=== PATIENT | female | born 1975 | race Caucasian/White ===

== ENCOUNTER 2021-07-18 02:17 | Inpatient (IN) | payer BC ==
[~2021-07-18] VITALS: Ht 167.6 cm; Wt 71.0 kg
[2021-07-18 03:16] LABS: HEMOGLOBIN 10.9 g/dl (12.5-16.0); MEAN CELL VOLUME 91 fl (80.0-100.0); MEAN CORPUSCULAR HEMOGLOBIN 33 pg (27.0-31.0); MEAN CORPUSCULAR HGB CONC 36 g/dl (33.0-37.0); MEAN PLATELET VOLUME 9.1 fl (7.4-10.4); PLATELET COUNT 209 K/mm3 (130-400); RED BLOOD COUNT 3.32 M/mm3 (4.10-5.30); REDCELL DISTRIBUTION WIDTH-CV 12.1 % (11.5-14.5)
[2021-07-18 03:21] LABS: HEMATOCRIT 30.1 % (37.0-47.0)
[2021-07-18 03:30] LABS: ALANINE AMINOTRANSFERASE 20 U/L (0-55); ALBUMIN 2.5 gm/dL (3.5-5.0); ALKALINE PHOSPHATASE 84 U/L (40-150); ANION GAP 12 mmol/L (7-16); AST,SGOT 27 U/L (5-34); BILIRUBIN,TOTAL 1.1 mg/dL (0.2-1.2); BLOOD UREA NITROGEN 2 mg/dL (7-19); CALCIUM 7.7 mg/dL (8.4-10.2); CARBON DIOXIDE 16 mmol/L (22-29); CHLORIDE 99 mmol/L (98-107); CREATININE, serum 0.54 mg/dL (0.57-1.11); GLUCOSE 109 mg/dL (70-99); SODIUM 127 mmol/L (136-145); TOTAL PROTEIN 6.1 gm/dL (6.2-8.1)
[2021-07-18 03:32] LABS: POTASSIUM 2.9 mmol/L (3.5-4.5)
[2021-07-18 03:40] LABS: TROPONIN-I < 0.010 ng/mL (0.00-0.033)
[2021-07-18 03:44] LABS: BAND 5 % (0-10); LYMPHOCYTE 13 % (20.0-51.0); NEUTROPHILS 72 % (42.0-75.2)
[2021-07-18 03:45] LABS: PLATELET ESTIMATE NORMAL (NORMAL)
[2021-07-18] MEDS ORDERED: ASPIRIN 81M81 MG/TA2 PO (06:37)
[2021-07-18] MEDS ORDERED: PRENATAL TABLET PO (06:38)
[2021-07-18 12:00] VITALS: BP 133/63; PULSE 131; TEMP 100
[2021-07-18 15:58] LABS: HEMATOCRIT 28.9 % (37.0-47.0); HEMOGLOBIN 10.1 g/dl (12.5-16.0); MEAN CELL VOLUME 94 fl (80.0-100.0); MEAN CORPUSCULAR HEMOGLOBIN 33 pg (27.0-31.0); MEAN CORPUSCULAR HGB CONC 35 g/dl (33.0-37.0); MEAN PLATELET VOLUME 8.9 fl (7.4-10.4); PLATELET COUNT 212 K/mm3 (130-400); RED BLOOD COUNT 3.07 M/mm3 (4.10-5.30); REDCELL DISTRIBUTION WIDTH-CV 12.4 % (11.5-14.5)
[2021-07-18 16:00] VITALS: BP 110/45; PULSE 130; TEMP 99.5
--- NOTE | 2021-07-18 16:00 | NUR ---
This RN at bedside to doppler. FHR 160s-170s. No audible increases or decreases. Report to primary RN.
[2021-07-18 16:15] LABS: ANION GAP 10 mmol/L (7-16); C-REACTIVE PROTEIN 8.96 mg/dL (0.00-0.50); CALCIUM 7.4 mg/dL (8.4-10.2); CARBON DIOXIDE 17 mmol/L (22-29); CHLORIDE 106 mmol/L (98-107); CREATININE, serum 0.57 mg/dL (0.57-1.11); GLUCOSE 126 mg/dL (70-99); MAGNESIUM 1.7 mg/dL (1.6-2.6); POTASSIUM 3.4 mmol/L (3.5-4.5); SODIUM 133 mmol/L (136-145)
[2021-07-18 16:17] LABS: BLOOD UREA NITROGEN < 2 mg/dL (7-19)
--- NOTE | 2021-07-18 18:00 | NUR ---
Patient admitted to room 302 from ED. Upon initial assessment, patient was requring 2L of O2 via nasal cannula. As the shift progressed, patient's anxiety intensified and patient's O2 had to be titrated up to 9L via Oxy mask. JI Oshea and respiratory notified. Lung bases diminished. Normal S1 and S2 sounds present. Pedal and radial pulses +3 bilaterally. Patient is tachy in the 130's. Bowel sounds present in all four quadrants. heart sounds scheduled every four hours. OB aware. No skin issues noted. Patient is experiencing diarrhea. Tolerating PO with no issues. Patient denies any further needs at this time. Call light in reach. Report given to BERENICE Nixon.
[2021-07-18 19:50] VITALS: BP 113/42; PULSE 123; TEMP 98.2
--- NOTE | 2021-07-18 22:21 | NUR ---
FHT 150-160 AND REACTIVE, NO AUDIABLE DECELS. PT IS VERY ANIXOUS [place] WHEN GETTING UP COUGHS AND HYPERVENTALATES. PRN ATIVAN GIVEN. PUREWICK IN FOR VOIDING. ASSESSMENT COMPLETE. POC DISCUSSED. CALL LIGHT WI REACH.
[2021-07-18 22:39] VITALS: BP 108/46; PULSE 116; TEMP 98.5
[2021-07-19] VITALS (295 sets, daily range): BP systolic 101–111; BP diastolic 46–73; PULSE 89–115; TEMP 96.9–98.2; O2SAT 85–96
[2021-07-19 00:43] LABS: ARTERIAL BLD GAS O2 SATURATION 93.6 % (92-100); ARTERIAL BLD GAS TCO2 CT 20.5; ARTERIAL BLOOD GAS BASE EXCESS -3.3 (-2-2); ARTERIAL BLOOD GAS HCO3 19.6 meq/L (22-26); ARTERIAL BLOOD GAS PCO2 28.6 mmHg (35-45); ARTERIAL BLOOD GAS PO2 65.9 mmHg (80-100); ARTERIAL BLOOD GAS pH 7.45 (7.35-7.45)
--- NOTE | 2021-07-19 00:55 | NUR ---
fht 150-160 and reactive, no decels. ativan is helping w aniexty levels.
--- NOTE | 2021-07-19 05:39 | NUR ---
fht 160-170 and reactive, no audiable decels. Pt back to high flow did not toelrate airvo very well. mininal sleep overnight. cough up some phlem this am.
[2021-07-19 07:07] LABS: HEMOGLOBIN 10.8 g/dl (12.5-16.0); MEAN CELL VOLUME 94 fl (80.0-100.0); MEAN CORPUSCULAR HEMOGLOBIN 33 pg (27.0-31.0); MEAN CORPUSCULAR HGB CONC 35 g/dl (33.0-37.0); MEAN PLATELET VOLUME 9.2 fl (7.4-10.4); PLATELET COUNT 248 K/mm3 (130-400); RED BLOOD COUNT 3.32 M/mm3 (4.10-5.30); REDCELL DISTRIBUTION WIDTH-CV 12.4 % (11.5-14.5)
[2021-07-19 07:09] LABS: HEMATOCRIT 31.2 % (37.0-47.0)
[2021-07-19 07:21] LABS: CREATININE, serum 0.59 mg/dL (0.57-1.11); MAGNESIUM 1.8 mg/dL (1.6-2.6)
--- NOTE | 2021-07-19 10:11 | NUR ---
PT RESTING IN BED. MORNING MEDICATIONS GIVEN. SHIFT ASSESSMENT COMPLETED. PT ANXIOUS, ESPECIALLY AFTER SPEAKING TO DOCTORS THIS MORNING AND LEARNING ABOUT POSSIBLE TRANSFER. DENIES ANY PAIN. SOB WITH ANY ACTIVITY. PT ON 14L OXYMASK. INTERESTED IN TRYING A POPSICKLE BUT HAS NO APPETITE FOR ANYTHING ELSE. WILL CONTINUE TO MONITOR.
--- NOTE | 2021-07-19 14:51 | NUR ---
PT TRASFERRED TO ICU AT THIS TIME, ACCOMPANIED BY THIS RN.
[2021-07-19 15:51] LABS: ARTERIAL BLD GAS O2 SATURATION 94.7 % (92-100); ARTERIAL BLD GAS TCO2 CT 20.6; ARTERIAL BLOOD GAS BASE EXCESS -3.2 (-2-2); ARTERIAL BLOOD GAS HCO3 19.7 meq/L (22-26); ARTERIAL BLOOD GAS PCO2 28.7 mmHg (35-45); ARTERIAL BLOOD GAS PO2 71.2 mmHg (80-100); ARTERIAL BLOOD GAS pH 7.46 (7.35-7.45)
--- NOTE | 2021-07-19 15:59 | NUR ---
Patient to be transferred down to ICU. Patient may need transfer to facility with NICU as she is 22 weeks .
--- NOTE | 2021-07-19 20:13 | NUR ---
PATIENT IS VERY ANXIOUS AND NEEDS A LOT OF REASSURANCE IN REGARDS TO CARE; STATES THAT SHE FEELS LIKE SHE'S GOING TO HAVE A PANIC ATTACK WHEN THINGS GO WRONG; FOR INSTANCE, HER PUREWICK WASN'T HOOKED UP PROPERLY AND NOW SHE'S AFRAID TO URINATE BECAUSE "IT MAY NOT WORK AND IF IT DOESN'T I'LL GET ANXIOUS AND HAVE A PANIC ATTACK". NEEDS LOTS OF REASSURANCE THAT THINGS WILL WORK AND SHE WILL BE OK.
--- NOTE | 2021-07-19 22:30 | NUR ---
Patient sitting up in bed. Very anxious, becomes tearful very quickly when RN comes into room. Has several questions about events of the day, especially concerned about "transferring to another hospital when my baby is 24 weeks and having to do a ." This RN spoke with patient at length and explained events of today and why she is in the ICU instead of being on the medical floor. Patient appears much calmer after talking and less tearful. Encouragement given. Asks many relivent questions; answered as able. Encouraged patient to speak with Dr. White tomorrow if continues to have questions or concerns.
[2021-07-20] VITALS (659 sets, daily range): BP systolic 92–146; BP diastolic 55–73; PULSE 88–111; TEMP 97.1–98.4; O2SAT 87–99
--- NOTE | 2021-07-20 04:40 | NUR ---
Awakens easily for FHTs and AM lab draw. States "I slept really good for a couple hours and feel a lot better." Encouragement given. Still becomes tachypnic with conversation but is able to calm self and recovers quickly. Denies needs at this time, request to shut lights back off so she could nap longer.
[2021-07-20 05:47] LABS: HEMOGLOBIN 10.5 g/dl (12.5-16.0); MEAN CELL VOLUME 96 fl (80.0-100.0); MEAN CORPUSCULAR HEMOGLOBIN 33 pg (27.0-31.0); MEAN CORPUSCULAR HGB CONC 34 g/dl (33.0-37.0); MEAN PLATELET VOLUME 9.1 fl (7.4-10.4); PLATELET COUNT 273 K/mm3 (130-400); REDCELL DISTRIBUTION WIDTH-CV 12.7 % (11.5-14.5)
[2021-07-20 06:00] LABS: HEMATOCRIT 30.7 % (37.0-47.0)
[2021-07-20 06:12] LABS: C-REACTIVE PROTEIN 10.19 mg/dL (0.00-0.50); CALCIUM 7.7 mg/dL (8.4-10.2); CREATININE, serum 0.5 mg/dL (0.57-1.11); POTASSIUM 3.3 mmol/L (3.5-4.5)
[2021-07-20 06:38] LABS: BAND 26 % (0-10); METAMYELOCYTE 4 % (0-0); NEUTROPHILS 43 % (42.0-75.2)
[2021-07-20 06:39] LABS: LYMPHOCYTE 19 % (20.0-51.0)
[2021-07-20 06:40] LABS: PLATELET ESTIMATE NORMAL (NORMAL)
--- NOTE | 2021-07-20 10:06 | NUR ---
REPORT RECEIVED FROM BERENICE OSORIO. PATIENT ANXIOUS OVERNIGHT BUT OTHERWISE OK; VITAL SIGNS ALL WITHIN NORMAL LIMITS THIS MORNING AND PATIENT IS RESTING COMFORTABLY IN BED.
--- NOTE | 2021-07-20 12:09 | NUR ---
Due to the patient's covid status, phone call was made to complete intake. Phone number listed on the account is for her Ross. Ross reports that that prior to this, she was fully independent with her activities of daily living and that she does not utilize any DME to assist with mobility and has no O2 needs at home. Ross reports that the patient does not have a PCP and has been utilizing her OB, Dr. Christina for care needs and uses [facility] in [place] for perscriptions. Ross reports that they do not have DPOA-HC established at this time. Education provided surrounding a DPOA-HC and that leagally he would be her decision make. Ross verbalized his understanding. Offered to have the patients RN call him and give a clinical update on the patient's status to which he would like. Gas Line Servicer notified to have the patient's RN call and give clinical update.
[2021-07-21] VITALS (363 sets, daily range): BP systolic 96–131; BP diastolic 59–87; PULSE 80–95; TEMP 97.4–98.1; O2SAT 89–98
[2021-07-21 05:43] LABS: CALCIUM 8.4 mg/dL (8.4-10.2); CREATININE, serum 0.51 mg/dL (0.57-1.11); POTASSIUM 3.4 mmol/L (3.5-4.5)
--- NOTE | 2021-07-21 10:24 | NUR ---
MORNING ASSESSMENT SHOW A PT SITTING UP IN BED AWAKE AND ALERT. THE PATIENT IS 23 WEEKS AND 2 DAYS. HEART IS 156. NOTHING TO REPORT THROUGHOUT THE NIGHT.
--- NOTE | 2021-07-21 11:50 | NUR ---
CALLED TO GIVE CLINICAL UPDATE.
--- NOTE | 2021-07-21 12:15 | NUR ---
REPORT GIVEN TO MEDICAL FLOOR NURSE RENETTA NG ROOM 303. PATIENT LEAVING UNTI AT 1230 VIA WHEELCHAIR ON 12 L NC.
--- NOTE | 2021-07-21 13:20 | NUR ---
DURING TRANSPORT TO MEDICAL COVID UNIT, PT STARTED TO HAVE A PANIC ATTACK AT STATED " I CANT CATCH MY BREATH". HER SATS WERE 95% ON HIGH FLOW NC AT 12 LPM. THROUGH COACHING, THE PATIENT WAS ABLE TO REGUALTE HER BREATHING AND COME DOWN FROM HER PANIC ATTACK. NURSE RENETTA NG RESUMED CARE OF PT.
--- NOTE | 2021-07-21 13:36 | NUR ---
Patient has moved up to the covid unit.
--- NOTE | 2021-07-21 13:45 | NUR ---
Patient admitted to room 302 from ICU. Upon initial assessment patient requiring 10 L of O2 via nasal cannula. Lungs diminished. Normal S1 and S2 sounds present, radial and pedal pulses +2 bilaterally. No skin issues noted. Bowel sounds present in all four quadrants. FHT to be obtained Q4. OB aware. PICC line in RUU. PICC flushes and has good blood return. Patient using purewick to urinate. Patient denies any pain, discomfort, or further needs at this time. Call light in reach. VSS. Patient A&O.
--- NOTE | 2021-07-21 16:31 | NUR ---
This RN to patient room. Easily able to locate and doppler FHR in RLQ 150-160bpm. Patient reports movement and denies needs or questions.
--- NOTE | 2021-07-21 22:15 | NUR ---
2214- HEART TONES DOPPLERED IN 150'S. MOVEMENT HEARD ON DOPPLER.
[2021-07-22 00:25] VITALS: BP 130/76; PULSE 94; TEMP 98
--- NOTE | 2021-07-22 03:05 | NUR ---
0305- HEART TONES DOPPLERED 155-165. MOVEMENT NOTED ON DOPPLER.
[2021-07-22 03:54] VITALS: BP 130/64; PULSE 79; TEMP 98.3
[2021-07-22 06:24] LABS: C-REACTIVE PROTEIN 3.5 mg/dL (0.00-0.50); CREATININE, serum 0.52 mg/dL (0.57-1.11); MAGNESIUM 1.6 mg/dL (1.6-2.6); POTASSIUM 3.5 mmol/L (3.5-4.5)
[2021-07-22 09:02] VITALS: BP 103/57; PULSE 97; TEMP 97.7
--- NOTE | 2021-07-22 10:39 | NUR ---
PT RESTING IN BED. MORNING MEDICATIONS GIVEN. SHIFT ASSESSMENT COMPLETED. PT DENIES ANY PAIN OR NEEDS. REPORTS HAVING SOME ANXIETY AT THIS TIME. TOLERATING ORAL INTAKE OKAY. CURRENTLY ON 6L OF OXYGEN VIA NC. PICC LINE HAS BLOOD RETURN AND FLUSHES. WILL CONTINUE TO MONITOR.
[2021-07-22 12:48] VITALS: BP 104/55; PULSE 108; TEMP 97.9
[2021-07-22 16:45] VITALS: BP 113/69; PULSE 90; TEMP 97.5
[2021-07-22 20:03] VITALS: BP 117/65; PULSE 91; TEMP 97.6
[2021-07-23 00:13] VITALS: BP 116/62; PULSE 87; TEMP 98
[2021-07-23 04:40] VITALS: BP 108/66; PULSE 90; TEMP 97.9
--- NOTE | 2021-07-23 04:45 | NUR ---
FHT 140-150'S REACTIVE W NO AUDIABLE DECELS, ACTIVE MOVEMENT HEARD.
--- NOTE | 2021-07-23 05:00 | NUR ---
Patient resting quietly, no c/o at this time, purewick in use, pericare done this shift, denies pain, shob noted with movement, O2@5L per NC in use, tolerating diet, accepting fluids.
[2021-07-23 06:11] LABS: HEMOGLOBIN 10.8 g/dl (12.5-16.0); MEAN CELL VOLUME 96 fl (80.0-100.0); MEAN CORPUSCULAR HEMOGLOBIN 33 pg (27.0-31.0); MEAN CORPUSCULAR HGB CONC 34 g/dl (33.0-37.0); MEAN PLATELET VOLUME 8.9 fl (7.4-10.4); PLATELET COUNT 428 K/mm3 (130-400); RED BLOOD COUNT 3.28 M/mm3 (4.10-5.30); REDCELL DISTRIBUTION WIDTH-CV 12.3 % (11.5-14.5)
[2021-07-23 06:30] LABS: C-REACTIVE PROTEIN 3.8 mg/dL (0.00-0.50); CALCIUM 8.5 mg/dL (8.4-10.2); CREATININE, serum 0.51 mg/dL (0.57-1.11); POTASSIUM 3.3 mmol/L (3.5-4.5)
[2021-07-23 06:42] LABS: HEMATOCRIT 31.5 % (37.0-47.0)
[2021-07-23 08:46] VITALS: BP 120/65; PULSE 90; TEMP 97.6
--- NOTE | 2021-07-23 09:49 | NUR ---
PT RESTING IN BED. ASKING ABOUT GETTING UP TO SHOWER. INSTRUCTED PT WE CAN TRY GETTING UP TO THE COMMODE AND SEEING HOW SHE TOLERATES IT. CURRENTLY ON 3L NC. DENIES ANY PAIN OR NEEDS. WILL CONTINUE TO MONITOR.
[2021-07-23 12:00] VITALS: BP 109/55; PULSE 109; TEMP 97.7
[2021-07-23 14:20] VITALS: BP 109/55; PULSE 104; TEMP 97.7
[2021-07-23 19:38] VITALS: BP 107/62; PULSE 100; TEMP 97.7
--- NOTE | 2021-07-23 21:48 | NUR ---
PT IS LAYING IN BED WITH OCCASIONAL SHALLOW BREATHS. PT DENIES PAIN, IS PLEASANT AND HAS NO COMPLAINTS. PT IS WORRIED ABOUT GETTING UP MULTIPLE TIMES DURING NIGHT TO URINATE DUE TO PREGNACY. THIS RN MOVED COMMODE CLOSER TO BED, WIPES BESIDE AND TRASHCAN NEAR THE COMMODE. THIS RN MOVED BEDSIDE TABLE TO OTHER SIDE.PT IS PLEASED WITH THIS ARRANGEMENT. THIS RN EDUCATED PT ABOUT NEED TO CONTINUE TO MOVE TOLERATED. PT IS ANXIOUS TO GO HOME TO FAMILY. PT REQUESTED ATIVAN TO HELP SLEEP AND CALM NERVES. PT TOOK ALL MEDICATIONS, ASSESSMENT COMPLETED. PT BED IS IN LOWEST POSITION, WHEELS LOCKED, CALL LIGHT IN REACH. NO OTHER NEEDS AT THIS TIME.
--- NOTE | 2021-07-23 23:22 | NUR ---
2130- FHT 150S AND REACTIVE, NO AUDIABLE DECELS. POSTIVE MOVEMENT.
[2021-07-24 01:19] VITALS: BP 107/63; PULSE 93; TEMP 97.5
[2021-07-24 03:59] VITALS: BP 110/62; PULSE 98; TEMP 97.7
--- NOTE | 2021-07-24 06:37 | NUR ---
PT HAD UNEVENTFUL NIGHT. PT REPORTED ITCHING AROUND PICC INSERTION SITE.
[2021-07-24 08:47] VITALS: BP 101/55; PULSE 90; TEMP 97.3
[2021-07-24 09:04] LABS: CALCIUM 8.3 mg/dL (8.4-10.2); CREATININE, serum 0.52 mg/dL (0.57-1.11); MAGNESIUM 1.6 mg/dL (1.6-2.6); POTASSIUM 3.1 mmol/L (3.5-4.5)
--- NOTE | 2021-07-24 10:16 | NUR ---
PT RESTING IN BED. MRONING MEDICATIONS GIVEN. SHIFT ASSESSMENT COMPLETED. PICC LINE FLUSHES AND HAS GOOD BLOOD RETURN. PT FEELING A LOT BETTER TODAY. CURRENTLY ON 2L NC. DENIES ANY NEEDS AT THIS TIME. GOOD APPETITE. EAGER TO GO HOME. WILL CONTINUE TO MONITOR.
[2021-07-24] MEDS ORDERED: LOVENOX 4040 MG/0.4 SQ (12:20)
[2021-07-24 13:35] VITALS: BP 99/36; PULSE 60; TEMP 97.4
--- NOTE | 2021-07-24 14:21 | NUR ---
Patient will discharge home today and will not require home oxygen. SW contacted patient about primary care. Patient states she will follow up with this on her own as she wants to research what providers are in network with her insurance. WILI updated patient's RN. Patient's is on his way to picker patient.
== END 2021-07-24 15:03 | disposition home or self-care (01) | DRG 831 ==
LOC: COL.ER 02:17 → MEDICAL 04:50 → ICU 17:03 → MEDICAL 07-21 13:51
PROVIDERS: Internal Medicine; Student in an Organized Health Care Education/Training Program; ADMIT Internal Medicine
PROC: XW033E5 Introduction of Remdesivir Anti-infective into Peripheral Vein, Percutaneous Approach, New Technology Group 5 (ICD-10-PCS; principal; 2021-07-18)
PROC: 02HV33Z Insertion of Infusion Device into Superior Vena Cava, Percutaneous Approach (ICD-10-PCS; 2021-07-19)
PROC: 5A0935A Assistance with Respiratory Ventilation, Less than 24 Consecutive Hours, High Flow/Velocity Cannula (ICD-10-PCS; 2021-07-19)
DX: O98.512 Other viral diseases complicating pregnancy, second trimester (principal); U07.1 COVID-19; J12.82 Pneumonia due to coronavirus disease 2019; J96.01 Acute respiratory failure with hypoxia; E87.1 Hypo-osmolality and hyponatremia; E87.2 Acidosis; O99.512 Diseases of the respiratory system complicating pregnancy, second trimester; O99.282 Endocrine, nutritional and metabolic diseases complicating pregnancy, second trimester; E87.6 Hypokalemia; O99.012 Anemia complicating pregnancy, second trimester; D64.9 Anemia, unspecified; E86.0 Dehydration; O99.342 Other mental disorders complicating pregnancy, second trimester; F41.9 Anxiety disorder, unspecified; Z73.0 Burn-out; Z3A.22 22 weeks gestation of pregnancy
CPT/HCPCS: 99222-AI; 99232-AI; 99233-AI; 99239; C1751; J0696; J1650; J2405; J3475; J3480; J7030; J7050; J8540; Q0247

== ENCOUNTER 2021-11-07 07:40 | Inpatient (IN) | payer BC ==
[~2021-11-07] VITALS: Ht 167.6 cm; Wt 84.5 kg
[~2021-11-07 07:40] MED LIST: ASPIRIN 81M81 MG/TA2 PO; LOVENOX 4040 MG/0.4 SQ; PRENATAL TABLET PO
[2021-11-08] VITALS (17 sets, daily range): BP systolic 100–142; BP diastolic 52–88; PULSE 87–129; TEMP 97.5–97.8
[2021-11-08 07:08] LABS: BASO # 0.1 K/mm3 (0.0-0.2); BASO % 0.5 % (0.0-2.0); EOS # 0.1 K/mm3 (0.0-0.7); EOS % 0.6 % (0.0-4.0); GRAN # 7.1 K/mm3 (1.4-6.5); GRAN % 69.1 % (42.2-75.2); HEMOGLOBIN 11.4 g/dl (12.5-16.0); LYMPH # 2.4 K/mm3 (1.2-3.4); MEAN CELL VOLUME 93 fl (80.0-100.0); MEAN CORPUSCULAR HEMOGLOBIN 33 pg (27-31); MEAN CORPUSCULAR HGB CONC 35 g/dl (33.0-37.0); MEAN PLATELET VOLUME 9.8 fl (7.4-10.4); MONO # 0.6 K/mm3 (0.1-0.6); MONO % 5.8 % (1.7-9.3); PLATELET COUNT 289 K/mm3 (130-400); RED BLOOD COUNT 3.48 M/mm3 (4.10-5.30); REDCELL DISTRIBUTION WIDTH-CV 13.2 % (11.5-14.5)
[2021-11-08 07:11] LABS: HEMATOCRIT 32.3 % (37.0-47.0)
[2021-11-09 00:45] VITALS: BP 127/64; PULSE 91; TEMP 97.4
[2021-11-09 05:10] VITALS: BP 125/64; PULSE 90; TEMP 97.6
[2021-11-09] MEDS ORDERED: MOTRIN 800800 MG/TAB PO (07:29)
[2021-11-09 07:30] VITALS: BP 124/73; PULSE 90; TEMP 97.7
[2021-11-09] MEDS ORDERED: PERCOCET 325 MG1 TA2 PO (07:30)
--- NOTE | 2021-11-09 07:30 | NUR ---
0730RN AT BEDSIDE FOR ASSESSMENT. UPON ASSESSMENT IT WAS NOTED THAT ABDOMINAL DRESSING APPEARED SATURATED IN BLOOD. DUE TO APPEARANCE OF ABDOMINAL DRESSING THIS RN REMOVED DRESSING TO LOOK AT INCISION. NO ACTIVE BLEEDING NOTED ONCE REMOVED. PATIENT HAD A LARGE BRUISED AND FIRM AREA ON THE RIGHT SIDE OF THE INCISION. ALSO IN THAT AREA THERE WAS A 1/2IN SPOT OF THE INCISION THAT WAS NO LONGER APPROXIMATED. DR SHAFFER AT BEDSIDE TO LOOK AT INCISION. NO CONCERNS FROM HIM, HE REPORTS SMALL HEMATOMA ON RIGHT SIDE OF INCISION. THIS RN PLACED 2 STERI-STRIPS OVER UNAPPROXIMATED AREA. PATIENT TOLERATED WELL. TEFLA DRESSING PLACED OVER INCISION WITH EACH SIDE TAPED. WILL CONTINUE TO MONITOR INCISION.
--- NOTE | 2021-11-09 09:09 | NUR ---
Initial visit attempt; Nurse with family, Robot Operator left card of congratulations offering congratulations and God's blessings for the of their son and information regarding the availability of spiritual care at [facility].
--- NOTE | 2021-11-09 14:00 | NUR ---
1400RN AT BEDSIDE TO REASSESS INCISION. SMALL PENCIL SIZE AREA OF BLOOD NOTED ON TEFLA BUT NO ACTIVE BLEEDING. STERI STRIPS REMAIN IN PLACE. INCISION LEFT OPEN TO AIR.
--- NOTE | 2021-11-09 16:21 | NUR ---
1540DISCHARGE INSTRUCTIONS REVIEWED WITH PATIENT. PATIENT VERBALIZED UNDERSTNADING. WILL NOTIFY THIS RN WHEN READY TO LEAVE. 1600ALL PERSONAL BELONGINGS GATHERED FROM PATIENT ROOM. PATIENT LEFT AMBULATORY AND IN NO APPARENT DISTRESS, ACCOMPANIED BY THIS RN.
== END 2021-11-09 16:00 | disposition home or self-care (01) | DRG 788 ==
LOC: OB 11-08 05:45 → LDR 11-08 07:39 → OB 11-08 18:09
PROVIDERS: ADMIT Obstetrics & Gynecology
PROC: 10D00Z1 Extraction of Products of Conception, Low, Open Approach (ICD-10-PCS; principal; 2021-11-08)
DX: O34.211 Maternal care for low transverse scar from previous cesarean delivery (principal); O32.1XX0 Maternal care for breech presentation, not applicable or unspecified; O99.02 Anemia complicating childbirth; D64.9 Anemia, unspecified; O34.13 Maternal care for benign tumor of corpus uteri, third trimester; D25.2 Subserosal leiomyoma of uterus; Z37.0 Single live birth; Z3A.39 39 weeks gestation of pregnancy; Z86.16 Personal history of COVID-19
CPT/HCPCS: J0690; J1100; J1885; J2405; J2590; J2765; J7120